=== PATIENT | female | born 1990 | race Caucasian/White ===

== ENCOUNTER 2017-12-10 19:29 | Emergency (ER) | payer OTHER ==
[2017-12-10 19:42] VITALS: BP 145/89
[2017-12-10] MEDS ORDERED: Sulfamethox/Trimethoprim DS 800/160* TAB PO ONE (20:41)
--- NOTE | 2017-12-10 20:53 | UC ---
Cardiac HPI - HPI Summary HPI Summary: 27 yo female has had a left back abscess with cellulitis for a number of days no f/c had had left sided chest pain went to [facility] last pm was on monitor Had I and D abscess packed has had three doses of bactrim DS chest pain is constant not positional no cough no sob no abd pain - History of Current Complaint Chief Complaint: UCChestPain Stated Complaint: CHEST PAIN Time Seen by Provider: 12/10/17 20:16 Hx Obtained From: Patient Hx Last Menstrual Period: 12/04/17 Onset/Duration: Sudden Onset, Lasting Hours, Lasting Days Initial Severity: Moderate Current Severity: Moderate Pain Intensity: 6 - back a 10 Chest Pain Location: Discrete at: - see image Character: Dull/Aching Aggravating Factor(s): Nothing Alleviating Factor(s): Nothing Associated Signs & Symptoms: Positive: Chest Pain, Back Pain - at area of swelling - Allergy/Home Medications Allergies/Adverse Reactions: Allergies Allergy/AdvReac Type Severity Reaction Status Date / Time No Known Allergies Allergy Verified 12/10/17 19:41 Home Medications: Home Medications HYDROcodone/ACETAMIN 5-325 MG* [Ethel 5-325 TAB*] 1 tab PO Q6H PRN 12/10/17 [ History Confirmed 12/10/17] Sulfamethox/Trimethoprim DS* [Bactrim DS 800/160 TAB*] 1 tab PO BID 12/10/17 [ History Confirmed 12/10/17] PMH/Surg Hx/FS Hx/Imm Hx Previously Healthy: Yes - Surgical History Surgical History: Yes Surgery Procedure, Year, and Place: C SECTIONS- THREE - Family History Known Family History: Positive: Hypertension, Diabetes - Social History Alcohol Use: Rare Substance Use Type: None Smoking Status (MU): Never Smoked Tobacco Have You Smoked in the Last Year: No - Immunization History Most Recent Influenza Vaccination: Fall 2014 Review of Systems Constitutional: Negative Skin: Negative Eyes: Negative ENT: Negative Respiratory: Negative Cardiovascular: Chest Pain Gastrointestinal: Negative Genitourinary: Negative Motor: Negative Neurovascular: Negative Musculoskeletal: Negative Neurological: Negative Psychological: Negative Is Patient Immunocompromised?: No All Other Systems Reviewed And Are Negative: Yes Physical Exam Triage Information Reviewed: Yes Appearance: Well-Appearing, No Pain Distress, Well-Nourished Vital Signs: Initial Vital Signs Temp 98.4 F 12/10/17 19:34 Pulse 107 12/10/17 19:34 Resp 18 12/10/17 19:34 BP 145/89 12/10/17 19:34 Pulse Ox 98 12/10/17 19:34 Vital Signs Reviewed: Yes Eyes: Positive: Conjunctiva Clear ENT: Positive: Hearing grossly normal, TMs normal, Uvula midline. Negative: Nasal congestion, Nasal drainage, TM dull, TM red, Tonsillar swelling, Tonsillar exudate, Trismus, Muffled voice, Hoarse voice, Dental tenderness, Sinus tenderness Neck: Positive: Supple, Nontender, No Lymphadenopathy Respiratory: Positive: Lungs clear, Normal breath sounds, No respiratory distress, No accessory muscle use Cardiovascular: Positive: RRR, No Murmur Abdomen Description: Positive: Nontender, No Organomegaly Musculoskeletal: Positive: ROM Intact - able to abduct to 120 degrees (left arm) , No Edema Neurological Exam: Normal Neurological: Positive: Alert Psychological Exam: Normal Skin Exam: Normal Diagnostics - Radiology No standard instances Xray Interpretation: No Acute Changes Radiology Interpretation Completed By: Radiologist - EKG Cardiac Rate: Tachycardia Cardiac Rhythm: Sinus: Normal Ectopy: None ST Segment: Normal - Assessment/Plan Course Of Treatment: declines repeat I&D here tonight. will recheck tomorrow - Clinical Impression Provider Diagnoses: chest pain of uncertain cause. left upper back abscess with overlying cellulitis Discharge - Discharge Plan Condition: Stable Disposition: HOME Prescriptions: Sulfamethox/Trimethoprim DS* [Bactrim DS 800/160 TAB*] 1 tab PO BID #6 tab Patient Education Materials: Noncardiac Chest Pain (ED), Abscess Follow-up (ED) Referrals: Jose L Betancourt PA [Primary Care Provider] - As Soon As Possible Additional Instructions: I suggest you get your abscess rechecked tomorrow/we are happy to recheck you here if unable to seen with your primary until you are rechecked take two of the antibiotic pills twice daily warm compresses Images Front/Back of Body, Lg ([place]): 1 - pain here/chest wall not tender 2 - cellulitis. very indurated. not flutuant
--- NOTE | 2017-12-10 21:30 | RAD ---
INDICATION: Left-sided chest pain COMPARISON: None TECHNIQUE: PA and lateral views of the chest were obtained. FINDINGS: The heart and mediastinum are normal in size and contour. The lungs are grossly clear. There is no evidence of large pleural effusion. Visualized bones are normal for the patient's age. There is no radiographic evidence of free air beneath the diaphragm IMPRESSION: No radiographic evidence of acute cardiopulmonary disease.
== END 2017-12-10 21:46 | disposition home or self-care (01) ==
LOC: UCCORT 19:29
DX: R07.9 Chest pain, unspecified (principal); L02.212 Cutaneous abscess of back [any part, except buttock and flank]; L03.312 Cellulitis of back [any part except buttock and flank]; Z82.49 Family history of ischemic heart disease and other diseases of the circulatory system; Z83.3 Family history of diabetes mellitus
CPT/HCPCS: 71046; 93005; 99212; A9270-GY; G0463

== ENCOUNTER 2017-12-28 09:33 | Emergency (ER) | payer OTHER ==
[2017-12-28 13:29] VITALS: BP 110/69
--- NOTE | 2017-12-28 14:39 | UC ---
Skin Complaint HPI - HPI Summary HPI Summary: Pt presents with c/o of sudden onset of painful sore posterior to left ear along hairline. Pt was recently treated for MRSA with PO antibiotics and then was hospitalized with sepsis X 5 days with staphyloccoci infection. was treated with IV Clindamycin and vancomycin then discharge with PO clindamycin. Pt c/o sore thraot and vaginal redness, white discharge and itchiness. - History of Current Complaint Chief Complaint: UCSkin Time Seen by Provider: 12/28/17 13:30 Stated Complaint: SKIN COMPLAINT Hx Obtained From: Patient Hx Last Menstrual Period: 12/06/17 ?: No Onset/Duration: Sudden Onset Skin Exposure Onset/Duration: Days Ago Timing: Constant Onset Severity: Mild Current Severity: Mild Pain Intensity: 3 Location: Discrete Character: Pain, Redness, Raised Aggravating Factor(s): Touch Alleviating Factor(s): Unknown Associated Signs & Symptoms: Positive: Tenderness Related History: Other: - recent hospitalization - Allergy/Home Medications Allergies/Adverse Reactions: Allergies Allergy/AdvReac Type Severity Reaction Status Date / Time No Known Allergies Allergy Verified 12/28/17 13:24 Home Medications: Home Medications Insulin ASPART (NF) [Novolog (NF)] 10 unit SC BID 12/28/17 [History Confirmed ] Oseltamivir CAP* [Tamiflu CAP*] 75 mg PO DAILY 12/28/17 [History Confirmed 12/28] Probiotic Product [Probiotic] 1 tab PO DAILY 12/28/17 [History Confirmed ] Review of Systems Constitutional: Negative Skin: Other - pimple Eyes: Negative ENT: Negative Respiratory: Negative Cardiovascular: Negative Gastrointestinal: Negative Genitourinary: Negative Motor: Negative Neurovascular: Negative Musculoskeletal: Negative Neurological: Negative Psychological: Negative Is Patient Immunocompromised?: No All Other Systems Reviewed And Are Negative: Yes PMH/Surg Hx/FS Hx/Imm Hx Previously Healthy: No - sepsis , MRSA - Surgical History Surgical History: Yes Surgery Procedure, Year, and Place: C SECTIONS- THREE - Family History Known Family History: Positive: Hypertension, Diabetes - Social History Occupation: Employed Full-time Lives: With Family Alcohol Use: Rare Substance Use Type: None Smoking Status (MU): Never Smoked Tobacco Have You Smoked in the Last Year: No - Immunization History Most Recent Influenza Vaccination: Fall 2014 Physical Exam Triage Information Reviewed: Yes Appearance: Well-Appearing Vital Signs: Initial Vital Signs Temp 98.2 F 12/28/17 13:19 Pulse 96 12/28/17 13:19 Resp 16 12/28/17 13:19 BP 110/69 12/28/17 13:19 Pulse Ox 99 12/28/17 13:19 Vital Signs Reviewed: Yes Eye Exam: Normal ENT Exam: Normal Neck exam: Normal Respiratory Exam: Normal Cardiovascular Exam: Normal - noted that pt expressed that she is nervous about being sick. Musculoskeletal Exam: Normal Neurological Exam: Normal Psychological Exam: Normal Skin Exam: Other - small 3mm wide, pustule, tender, no flucuant mass, no redstreaking, no swelling, Course/Dx - Course Course Of Treatment: I discussed my concern of sepsis with the pt and we discussed use of oral antibiotic. I reveiwed vital signs with her and discussed the need to seek immediate medical care if symptoms worsen in the next 12-24 hours. Pt verbalized understanding and agreed to plan of care. - Differential Diagnoses - Skin Complaint Differential Diagnoses: MRSA, Other - sepsis - Diagnoses Provider Diagnoses: folliculitis Discharge - Discharge Plan Condition: Stable Disposition: HOME Prescriptions: Cephalexin CAP* [Keflex 500 CAP*] 500 mg PO Q12H #20 cap DOXYcycline CAP(*) [DOXYcycline 100MG CAP(*)] 100 mg PO Q12H #20 cap Fluconazole 100 MG TAB* [Diflucan 100 MG TAB*] 100 mg PO DAILY #10 tab Mupirocin Calcium [Bactroban Nasal] 2 % NA DAILY #1 tube Patient Education Materials: Folliculitis (ED) Referrals: Helen Perez MD [Primary Care Provider] - If Needed Additional Instructions: Please note that if your symptoms do not improve in the next 24 hours it is recommended that you seek care at the closest healthcare facility.
== END 2017-12-28 14:49 | disposition home or self-care (01) ==
LOC: UCCORT 09:33
DX: L73.9 Follicular disorder, unspecified (principal); Z86.14 Personal history of Methicillin resistant Staphylococcus aureus infection
CPT/HCPCS: 87651; 99212; G0463

== ENCOUNTER 2018-06-12 19:47 | Emergency (ER) | payer OTHER ==
[2018-06-12 20:24] VITALS: BP 123/92
[2018-06-12] MEDS ORDERED: Sulfamethox/Trimethoprim DS 800/160* TAB PO ONE (20:47)
--- NOTE | 2018-06-12 20:59 | UC ---
Complaint Female HPI - HPI Summary HPI Summary: Pt c/o sudden onset urinary frequency, urgency and dysuria. Pt also, c/o vaginal discharge, thick, white, and vaginal "discomfort" X 1-2 days. Pt reports that she takes insulin but has not been told she is not a type I diabetic nor is she a type 2 diabetic. Pt states she had gestational diabetes with each . - History Of Current Complaint Chief Complaint: UCGU Stated Complaint: URINARY Time Seen by Provider: 06/12/18 20:12 Hx Obtained From: Patient Hx Last Menstrual Period: 05/12/18 ?: No Onset/Duration: Sudden Onset, Lasting Days, Still Present Timing: Constant Severity Initially: Mild Severity Currently: Mild Pain Intensity: 4 Character: Dull, Burning Aggravating Factor(s): Urination Associated Signs And Symptoms: Positive: Vaginal Discharge - Risk Factors Ovarian Torsion Risk Factor: Reproductive Age - Allergies/Home Medications Allergies/Adverse Reactions: Allergies Allergy/AdvReac Type Severity Reaction Status Date / Time No Known Allergies Allergy Verified 12/28/17 13:24 Home Medications: Home Medications Liraglutide [Victoza 3-Jj] 1 each INJ DAILY 06/12/18 [History Confirmed ] PMH/Surg Hx/FS Hx/Imm Hx Previously Healthy: Yes Endocrine History: Diabetes - not clearly diagnosed - Surgical History Surgical History: Yes Surgery Procedure, Year, and Place: C SECTIONS- THREE - Family History Known Family History: Positive: Hypertension, Diabetes - Social History Occupation: Employed Full-time Lives: With Family Alcohol Use: Rare Substance Use Type: None Smoking Status (MU): Never Smoked Tobacco Have You Smoked in the Last Year: No - Immunization History Most Recent Influenza Vaccination: Fall 2014 Review of Systems Constitutional: Negative Skin: Negative Eyes: Negative ENT: Negative Respiratory: Negative Cardiovascular: Negative Gastrointestinal: Negative Genitourinary: Dysuria, Frequency, Urgency, Vaginal/Penile Itching, Vaginal/ Penile Discharge Motor: Negative Neurovascular: Negative Musculoskeletal: Negative Neurological: Negative Psychological: Negative Is Patient Immunocompromised?: No All Other Systems Reviewed And Are Negative: Yes Physical Exam Triage Information Reviewed: Yes Appearance: Well-Appearing Vital Signs: Initial Vital Signs Temp 98 F 06/12/18 20:19 Pulse 91 06/12/18 20:19 Resp 14 06/12/18 20:19 BP 123/92 06/12/18 20:19 Pulse Ox 100 06/12/18 20:19 Vital Signs Reviewed: Yes Eye Exam: Normal ENT Exam: Normal Dental Exam: Normal Neck exam: Normal Respiratory: Positive: No respiratory distress Abdominal Exam: Normal Abdomen Description: Positive: Nontender Musculoskeletal Exam: Normal Neurological Exam: Normal Psychological Exam: Normal Skin Exam: Normal Complaint Female Dx - Differential Dx/Diagnosis Differential Diagnosis/HQI/PQRI: Urinary Tract Infection, Other - vaginal yeast Provider Diagnoses: UTI Discharge - Sign-Out/Discharge Documenting (check all that apply): Patient Departure - Discharge Plan Condition: Stable Disposition: HOME Prescriptions: Fluconazole 100 MG TAB* [Diflucan 100 MG TAB*] 100 mg PO DAILY #5 tab Sulfamethox/Trimethoprim DS* [Bactrim DS 800/160 TAB*] 1 tab PO Q12H #14 tab Patient Education Materials: Urinary Tract Infection in Women (ED) Referrals: Helen Perez MD [Primary Care Provider] - If Needed - Billing Disposition and Condition Condition: STABLE Disposition: Home
== END 2018-06-12 20:57 | disposition home or self-care (01) ==
LOC: UCCORT 19:47
DX: N39.0 Urinary tract infection, site not specified (principal)
CPT/HCPCS: 81003; 84702; 87077; 87086; 87186; 99212; A9270-GY; G0463

== ENCOUNTER 2018-07-03 20:01 | Emergency (ER) | payer OTHER ==
[2018-07-03 20:24] VITALS: BP 122/78
--- NOTE | 2018-07-03 20:43 | UC ---
Throat Pain/Nasal Dru HPI - History of Current Complaint Chief Complaint: UCGeneralIllness Stated Complaint: CONGESTION/COUGH Time Seen by Provider: 07/03/18 20:21 Hx Last Menstrual Period: 06/13/18 Pain Intensity: 4 - Allergies/Home Medications Allergies/Adverse Reactions: Allergies Allergy/AdvReac Type Severity Reaction Status Date / Time No Known Allergies Allergy Verified 07/03/18 20:23 PMH/Surg Hx/FS Hx/Imm Hx - Surgical History Surgical History: Yes Surgery Procedure, Year, and Place: C SECTIONS- THREE - Family History Known Family History: Positive: Hypertension, Diabetes - Social History Alcohol Use: Rare Substance Use Type: None Smoking Status (MU): Never Smoked Tobacco Have You Smoked in the Last Year: No - Immunization History Most Recent Influenza Vaccination: Fall 2014 Physical Exam Vital Signs: Initial Vital Signs Temp 98.5 F 07/03/18 20:19 Pulse 100 07/03/18 20:19 Resp 18 07/03/18 20:19 BP 122/78 07/03/18 20:19 Pulse Ox 100 07/03/18 20:19 Discharge - Discharge Plan Referrals: Helen Perez MD [Primary Care Provider] -
--- NOTE | 2018-07-03 20:44 | UC ---
Respiratory Complaint HPI - HPI Summary HPI Summary: Pt c/o sudden onset of fatigue, nasal congestion, generalized malaise, chills, cough X 2 days. - History of Current Complaint Chief Complaint: UCGeneralIllness Stated Complaint: CONGESTION/COUGH Time Seen by Provider: 07/03/18 20:21 Hx Obtained From: Patient Hx Last Menstrual Period: 06/13/18 ?: No Onset/Duration: Sudden Onset, Lasting Days, Still Present Timing: Constant Severity Initially: Mild Severity Currently: Moderate Pain Intensity: 4 Character: Cough: Productive - green Aggravating Factors: Exertion, Deep Breaths, Recumbent Position Alleviating Factors: Nothing Associated Signs And Symptoms: Positive: Chills, URI, Nasal Congestion, Hoarseness - Risk Factors Pulmonary Embolism Risk Factors: Negative Cardiac Risk Factors: Negative Pseudomonas Risk Factors: Negative Tuberculosis Risk Factors: Negative - Allergies/Home Medications Allergies/Adverse Reactions: Allergies Allergy/AdvReac Type Severity Reaction Status Date / Time No Known Allergies Allergy Verified 07/03/18 20:23 PMH/Surg Hx/FS Hx/Imm Hx Previously Healthy: Yes - Surgical History Surgical History: Yes Surgery Procedure, Year, and Place: C SECTIONS- THREE - Family History Known Family History: Positive: Hypertension, Diabetes - Social History Occupation: Employed Full-time Lives: With Family Alcohol Use: Rare Substance Use Type: None Smoking Status (MU): Never Smoked Tobacco Have You Smoked in the Last Year: No - Immunization History Most Recent Influenza Vaccination: Fall 2014 Review of Systems Constitutional: Chills, Fatigue Skin: Negative Eyes: Negative ENT: Sinus Congestion Respiratory: Cough Cardiovascular: Negative Gastrointestinal: Negative Genitourinary: Negative Motor: Negative Neurovascular: Negative Musculoskeletal: Myalgia Neurological: Headache Psychological: Negative Is Patient Immunocompromised?: No All Other Systems Reviewed And Are Negative: Yes Physical Exam Triage Information Reviewed: Yes Appearance: Ill-Appearing Vital Signs: Initial Vital Signs Temp 98.5 F 07/03/18 20:19 Pulse 100 07/03/18 20:19 Resp 18 07/03/18 20:19 BP 122/78 07/03/18 20:19 Pulse Ox 100 07/03/18 20:19 Vital Signs Reviewed: Yes Eye Exam: Normal ENT Exam: Other ENT: Positive: Nasal congestion Dental Exam: Normal Neck exam: Normal Respiratory Exam: Normal Cardiovascular Exam: Normal Musculoskeletal Exam: Normal Neurological Exam: Normal Psychological Exam: Normal Skin Exam: Normal UC Diagnostic Evaluation - Laboratory O2 Sat by Pulse Oximetry: 100 Respiratory Course/Dx - Differential Dx/Diagnosis Differential Diagnosis/HQI/PQRI: Bronchitis, Influenza Provider Diagnoses: Bronchitis Discharge - Sign-Out/Discharge Documenting (check all that apply): Patient Departure - Discharge Plan Condition: Stable Disposition: HOME Prescriptions: Azithromycin TAB* [Zithromax TAB (Z-JOSE) 250 mg #6 tabs] 2 tab PO .TODAY, THEN 1 DAILY #1 jose Benzonatate CAP* [Tessalon 100 MG CAP*] 100 mg PO Q8H PRN #21 cap PRN Reason: Cough Cetirizine HCl/Pseudoephedrine [Zyrtec-D Tablet] 1 each PO DAILY #10 tab Patient Education Materials: Acute Bronchitis (ED) Referrals: Helen Perez MD [Primary Care Provider] - Additional Instructions: Per institutional requirements, I have reviewed the chart, however, I was not consulted specifically or made aware of this patient by the above midlevel provider. I did not personally evaluate, interact with , or disposition this patient. - Billing Disposition and Condition Condition: STABLE Disposition: Home
== END 2018-07-03 20:56 | disposition home or self-care (01) ==
LOC: UCCORT 20:01
DX: J40 Bronchitis, not specified as acute or chronic (principal)
CPT/HCPCS: 99212; G0463

== ENCOUNTER 2018-10-12 10:40 | Emergency (ER) | payer OTHER ==
[2018-10-12 11:06] VITALS: BP 121/99
--- NOTE | 2018-10-12 11:47 | UC ---
Back Pain HPI - HPI Summary HPI Summary: fever x 1 day + chills, body aches, left side flank pain no cough , no runny nose no n/v/d/c , no urinary symptoms - History of Current Complaint Chief Complaint: UCRespiratory Stated Complaint: FLU SXS Time Seen by Provider: 10/12/18 11:00 Hx Obtained From: Patient Hx Last Menstrual Period: 10/11/18 ?: No Onset/Duration: Gradual Onset, Lasting Days - 1, Still Present, Worse Since - this morning Timing: Constant Severity Initially: Moderate Severity Currently: Severe Pain Intensity: 8 Back Pain: Is Discrete @ - left flank Aggravating Factor(s): Movement Alleviating Factor(s): Rest Associated Signs And Symptoms: Positive: Fever, Weakness, Flank Pain. Negative : Swelling, Redness, Bruising, Numbness, Tingling, Abdominal Pain, Bladder Incontinence, Bowel Incontinence, Weight Loss, Pain with Weight Bearing - Allergies/Home Medications Allergies/Adverse Reactions: Allergies Allergy/AdvReac Type Severity Reaction Status Date / Time No Known Allergies Allergy Verified 10/12/18 11:01 Home Medications: Home Medications Acetaminophen TAB* [Tylenol TAB*] 975 mg PO Q4H PRN 10/12/18 [History Confirmed 10/12/18] Ibuprofen TAB* [Advil TAB*] 800 mg PO Q6H PRN 10/12/18 [History Confirmed ] PMH/Surg Hx/FS Hx/Imm Hx Endocrine History: Diabetes - Surgical History Surgical History: Yes Surgery Procedure, Year, and Place: C SECTIONS- THREE - Family History Known Family History: Positive: Hypertension, Diabetes - Social History Alcohol Use: Rare Substance Use Type: None Smoking Status (MU): Never Smoked Tobacco Have You Smoked in the Last Year: No - Immunization History Most Recent Influenza Vaccination: Fall 2014 Review of Systems All Other Systems Reviewed And Are Negative: Yes Constitutional: Positive: Fever, Chills, Fatigue Skin: Positive: Negative Eyes: Positive: Negative ENT: Positive: Negative Respiratory: Positive: Negative Cardiovascular: Positive: Negative Gastrointestinal: Negative: Negative, Vomiting, Diarrhea, Nausea Genitourinary: Negative: Dysuria, Hematuria, Frequency, Urgency Is Patient Immunocompromised?: No Physical Exam Triage Information Reviewed: Yes Appearance: Well-Nourished, Pain Distress Vital Signs: Initial Vital Signs Temp 101.4 F 10/12/18 11:03 Pulse 130 10/12/18 11:03 Resp 17 10/12/18 11:03 BP 121/99 10/12/18 11:03 Pulse Ox 99 10/12/18 11:03 Vital Signs Reviewed: Yes Eyes: Positive: Conjunctiva Clear ENT: Positive: Normal ENT inspection, Hearing grossly normal, Pharynx normal, Pharyngeal erythema Neck exam: Normal Neck: Positive: Supple, Nontender, No Lymphadenopathy Respiratory: Positive: Chest non-tender, Lungs clear, Normal breath sounds, No respiratory distress, No accessory muscle use Cardiovascular: Positive: RRR, No Murmur, Pulses Normal, Brisk Capillary Refill Abdomen Description: Positive: Nontender, Soft. Negative: No Organomegaly, CVA Tenderness (R), CVA Tenderness (L), Distended, Guarding Bowel Sounds: Positive: Present Back Pain Course/Dx - Differential Dx/Diagnosis Provider Diagnoses: pyelonephritis Discharge - Sign-Out/Discharge Documenting (check all that apply): Patient Departure All imaging exams completed and their final reports reviewed: No Studies - Discharge Plan Condition: Stable Disposition: HOME Prescriptions: Ciprofloxacin TAB* [Cipro 500 MG TAB*] 500 mg PO BID #20 tab Patient Education Materials: Kidney Infection (ED) Forms: *Work Release Referrals: Helen Perez MD [Primary Care Provider] - 5 Days Additional Instructions: elevated blood Glucose please follow up with your pcp this week - Billing Disposition and Condition Condition: STABLE Disposition: Home
--- NOTE | 2018-10-14 07:16 | UC ---
- Progress Note Progress Note: + E. coli on cipro await sensitivity ljj 10/14/2018 Discharge - Sign-Out/Discharge Documenting (check all that apply): Post-Discharge Follow Up All imaging exams completed and their final reports reviewed: No Studies - Discharge Plan Condition: Stable Disposition: HOME Prescriptions: Ciprofloxacin TAB* [Cipro 500 MG TAB*] 500 mg PO BID #20 tab Patient Education Materials: Kidney Infection (ED) Forms: *Work Release Referrals: Helen Perez MD [Primary Care Provider] - 5 Days Additional Instructions: elevated blood Glucose please follow up with your pcp this week - Billing Disposition and Condition Condition: STABLE Disposition: Home
== END 2018-10-12 11:45 | disposition home or self-care (01) ==
LOC: UCCORT 10:40
DX: N12 Tubulo-interstitial nephritis, not specified as acute or chronic (principal); E11.9 Type 2 diabetes mellitus without complications
CPT/HCPCS: 81003; 87077; 87086; 87186; 99212; G0463